=== PATIENT | female | born 1955 | race Caucasian/White ===

== ENCOUNTER 2023-05-03 11:53 | Day surgery (SDC) | payer MEDICARE ==
[~2023-05-03] VITALS: Ht 162.6 cm; Wt 87.0 kg
[~2023-05-03 11:53] MED LIST: CARB200C4 PO; DSS100CA PO; ROSU10TA6 PO; nifedipine TOP; rectiv RC
[2023-05-03 12:48] VITALS: TEMP 98.6
[2023-05-03 13:06] VITALS: BP 167/89; O2SAT 99
[2023-05-04] MEDS ORDERED: NS 1,000 ML IV ONE (06:00)
== END 2023-05-03 13:06 | disposition home or self-care (01) ==
LOC: M OPP 11:53 → EDBD 14:30
PROVIDERS: ATTEND Surgery
DX: Z86.010 Personal history of colon polyps (principal); K63.5 Polyp of colon; K64.0 First degree hemorrhoids; K57.30 Diverticulosis of large intestine without perforation or abscess without bleeding; G40.909 Epilepsy, unspecified, not intractable, without status epilepticus; Z79.899 Other long term (current) drug therapy